=== PATIENT | female | born 1975 | race Caucasian/White ===

== ENCOUNTER → 2023-04-13 07:53 | Outpatient (REF) | payer BC, SELFPAY | LOC: WDC 07:53 | PROVIDERS: ATTENDING PHYSICIAN Nurse Practitioner Family; FAMILY PHYSICIAN Physician Assistant | DX: Z12.31 Encounter for screening mammogram for malignant neoplasm of breast (principal) | CPT/HCPCS: 77063; 77067 ==

== ENCOUNTER → 2024-04-18 07:44 | Outpatient (REF) | payer BC, SELFPAY | LOC: WDC 07:44 | PROVIDERS: ATTENDING PHYSICIAN Nurse Practitioner Family; FAMILY PHYSICIAN Physician Assistant | DX: Z12.31 Encounter for screening mammogram for malignant neoplasm of breast (principal) | CPT/HCPCS: 77063; 77067 ==